=== PATIENT | female | born 1980 | race African-American/Black ===

== ENCOUNTER 2018-01-03 17:13 | Emergency (ER) | payer MEDICAID, SELFPAY ==
[2018-01-03 18:20] LABS: Urine Blood 3+ (NEG); Urine Glucose NEGATIVE (NEG); Urine Protein 2+ (NEG); Urine pH 6.5 (5.0-7.0)
--- NOTE | 2018-01-03 19:32 | EDPHYS ---
Physician Documentation [facility] Name: Cecile Salvador Age: 37 yrs Sex: Female : 1980 Arrival Date: 01/03/2018 Time: 17:18 Bed 16 Private MD: None, None ED Physician Mariela Gill HPI: 01/03 17:45 This 37 yrs old Black Female presents to ER via Ambulatory with complaints of Check HCG cp Levels. 17:45 The patient presents with vaginal bleeding that is spotting, a desire for a cp test. 17:45 Onset: The symptoms/episode began/occurred 2 week(s) ago, intermittently. 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 - Social history:: Smoking status: Patient uses tobacco products, smokes one-half pack cigarettes per day. - Ebola Screening: : Patient denies travel to an Ebola-affected area in the 21 days before illness onset. ROS: 17:52 Constitutional: Negative for body aches, chills, fever, poor PO intake. cp 17:52 Eyes: Negative for injury, pain, redness, and discharge. cp 17:52 Abdomen/GI: Negative for abdominal pain, nausea, vomiting, and diarrhea. 17:52 : Positive for vaginal spotting, Negative for urinary symptoms. 17:52 Skin: Negative for cellulitis, rash. 17:52 All other systems are negative. Exam: 17:58 Constitutional: The patient appears in no acute distress, alert, awake, non-toxic, well cp developed, well nourished. 17:58 Head/Face: Normocephalic, atraumatic. cp 17:58 Eyes: Periorbital structures: appear normal, Conjunctiva: normal, no exudate, no cp injection, Sclera: no appreciated abnormality, Lids and lashes: appear normal, bilaterally. 17:58 ENT: External ear(s): are unremarkable, Nose: is normal, Mouth: Lips: moist, Oral mucosa: pink and intact, moist, Posterior pharynx: is normal, airway is patent. 17:58 Chest/axilla: Inspection: normal, Palpation: is normal, no crepitus, no tenderness. 17:58 Cardiovascular: Rate: normal, Rhythm: regular. 17:58 Respiratory: the patient does not display signs of respiratory distress, Respirations: normal, no use of accessory muscles, no retractions, no splinting, no tachypnea, labored breathing, is not present. 17:58 Abdomen/GI: Inspection: abdomen appears normal, Bowel sounds: active, all quadrants, cp Palpation: abdomen is soft and non-tender, in all quadrants, rebound tenderness, is not appreciated, voluntary guarding, is not appreciated, involuntary guarding, is not appreciated. 17:58 Skin: cellulitis, is not appreciated, no rash present. Vital Signs: 17:38 BP 146 / 103; Pulse 54; Resp 18; Temp 98.6; Pulse Ox 100% on R/A; Weight 104.33 kg (R); aj1 Height 5 ft. 6 in. (167.64 cm) (R); Pain 6/10; 19:15 BP 144 / 82; Pulse 74; Resp 16; Pulse Ox 100% on R/A; Pain 0/10; lp1 17:38 Body Mass Index 37.12 (104.33 kg, 167.64 cm) aj1 MDM: 17:42 Patient medically screened. cp 18:00 Differential diagnosis: ectopic , menometrorrhagia, menorrhea, molar cp preganancy, ruptured ectopic , urinary tract infection, vaginosis. 19:30 Data reviewed: vital signs, nurses notes, lab test result(s), and as a result, I will cp discharge patient. 19:30 Counseling: I had a detailed discussion with the patient and/or guardian regarding: the cp historical points, exam findings, and any diagnostic results supporting the discharge/admit diagnosis, lab results, to return to the emergency department if symptoms worsen or persist or if there are any questions or concerns that arise at home, Discussed results of labs indicating negative . Will discharge to home for continued monitoring. 01/03 18:08 Order name: Urine Dipstick--Ancillary (enter results); Complete Time: 19:00 01/03 19:00 Interpretation: Normal except: UBLD 3+; UPROT 2+. 01/03 18:08 Order name: Urine --Ancillary (enter results); Complete Time: 19:00 ss 01/03 17:42 Order name: Urine Dipstick-Ancillary (obtain specimen); Complete Time: 18:05 01/03 17:42 Order name: Urine Test (obtain specimen); Complete Time: 18:06 01/03 18:19 Order name: Test, Serum; Complete Time: 19:29 01/03 19:29 Interpretation: Reviewed. cp Administered Medications: No medications were administered Disposition: 01/03/18 19:32 Discharged to Home. Impression: Encounter for test, result negative. - Condition is Stable. - Medication Reconciliation Form, Thank You Letter, Antibiotic Education, Prescription Opioid Use form. - Follow up: Private Physician; When: As needed; Reason: Worsening of condition. - Problem is new. - Symptoms are unchanged. Addendum: 01/04/2018 20:25 Co-signature as Attending Physician, Mairela Gill MD. m a2 Signatures: Dispatcher [employer] EDMS Treva Lopez RN RN aj1 Sissy Wolfe RN RN lp1 Adan Gurrola PA PA cp Mariela Gill MD MD ma2 Corrections: (The following items were deleted from the chart) 01/03 19:37 19:32 01/03/2018 19:32 Discharged to Home. Impression: Encounter for test, lp1 result negative. Condition is Stable. Forms are Medication Reconciliation Form, Thank You Letter, Antibiotic Education, Prescription Opioid Use. Follow up: Private Physician; When: As needed; Reason: Worsening of condition. Problem is new. Symptoms are unchanged. cp
--- NOTE | 2018-01-03 19:32 | ER ---
Nurse's Notes [facility] Name: Cecile Salvador Age: 37 yrs Sex: Female : 1980 Arrival Date: 01/03/2018 Time: 17:18 Bed 16 Private MD: None, None Diagnosis: Encounter for test, result negative Presentation: 01/03 17:32 Presenting complaint: Patient states: Vaginal bleeding intermittently for the past 2 aj1 weeks. States that she will bleed for 2 to 3 days and then stop, reports dark red blood with clots. She is concerned that she is having a miscarriage, she took 2 tests at home and they were both negative, but states she needs a blood test because her tests always buffing turner and counter negative. Transition of care: patient was not received from another setting of care. Onset of symptoms was January 03, 2018. Risk Assessment: Do you want to hurt yourself or someone else? Patient reports no desire to harm self or others. Initial Sepsis Screen: Does the patient meet any 2 criteria? No. Patient's initial sepsis screen is negative. Does the patient have a suspected source of infection? No. Patient's initial sepsis screen is negative. Care prior to arrival: None. 17:32 Method Of Arrival: Ambulatory aj1 17:32 Acuity: HAILEY 3 aj1 Triage Assessment: 17:38 General: Appears in no apparent distress. comfortable, Behavior is calm, cooperative, aj1 appropriate for age. Pain: Complains of pain in suprapubic area Pain does not radiate. Pain currently is 6 out of 10 on a pain scale. Quality of pain is described as heavy. Neuro: Level of Consciousness is awake, alert, obeys commands. Cardiovascular: Patient's skin is warm and dry. Respiratory: Airway is patent Respiratory effort is even, unlabored, Respiratory pattern is regular, symmetrical. : Reports vaginal bleeding that is with clots, spotty. 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 - Social history:: Smoking status: Patient uses tobacco products, smokes one-half pack cigarettes per day. - Ebola Screening: : Patient denies travel to an Ebola-affected area in the 21 days before illness onset. Screenin:42 Abuse screen: Denies threats or abuse. Nutritional screening: No deficits noted. rb1 Tuberculosis screening: No symptoms or risk factors identified. Fall Risk None identified. Assessment: 17:42 General: Appears in no apparent distress. comfortable, obese, Behavior is calm, rb1 cooperative. Pain: Denies pain. Neuro: Level of Consciousness is awake, alert, obeys commands, Oriented to person, place, time, situation. Cardiovascular: Capillary refill < 3 seconds is brisk in bilateral fingers. Respiratory: Airway is patent Respiratory effort is even, unlabored, Respiratory pattern is regular, symmetrical. GI: No signs and/or symptoms were reported involving the gastrointestinal system. : Reports urinary frequency. Derm: Skin is dry, Skin is normal, Skin temperature is warm. 19:15 Reassessment: Patient appears in no apparent distress at this time. Patient is alert, lp1 oriented x 3, equal unlabored respirations, skin warm/dry/pink. Vital Signs: 17:38 BP 146 / 103; Pulse 54; Resp 18; Temp 98.6; Pulse Ox 100% on R/A; Weight 104.33 kg (R); aj1 Height 5 ft. 6 in. (167.64 cm) (R); Pain 6/10; 19:15 BP 144 / 82; Pulse 74; Resp 16; Pulse Ox 100% on R/A; Pain 0/10; lp1 17:38 Body Mass Index 37.12 (104.33 kg, 167.64 cm) aj1 ED Course: 17:18 Patient arrived in ED. sb2 17:19 None, None is Private Physician. sb2 17:36 Triage completed. aj1 17:38 Arm band placed on Patient placed in an exam room. aj1 17:42 Aadn Gurrola PA is PHCP. cp 17:42 Mariela Gill MD is Attending Physician. cp 17:42 Patient has correct armband on for positive identification. Bed in low position. Call rb1 light in reach. Side rails up X 1. Pulse ox on. NIBP on. 17:55 Constanza Andino, RN is Primary Nurse. rb1 19:04 Report given to DAPHNEY Sheehan. rb1 19:16 No provider procedures requiring assistance completed. lp1 19:21 Sissy Wolfe, RN is Primary Nurse. lp1 19:36 Patient did not have IV access during this emergency room visit. lp1 Administered Medications: No medications were administered Outcome: 19:32 Discharge ordered by MD. cp 19:36 Discharged to home ambulatory. lp1 19:36 Condition: good 19:36 Discharge instructions given to patient, Instructed on discharge instructions, follow up and referral plans. Demonstrated understanding of instructions, follow-up care. 19:37 Patient left the ED. lp1 Signatures: Treva Lopez, RN RN aj1 Sissy Wolfe, RN RN lp1 Adan Gurrola PA PA cp Barber, Rebecca, RN RN rb1 Janel Alvarado sb2
[2018-01-03 19:50] VITALS: TEMP 98.6; O2SAT 100
[2018-01-03 19:51] VITALS: BP 144/82
== END 2018-01-03 19:37 | disposition home or self-care (01) ==
LOC: ER 17:13
DX: Z32.02 Encounter for pregnancy test, result negative (principal); I10 Essential (primary) hypertension
CPT/HCPCS: 36415; 81003; 81025; 84703; 99283

== ENCOUNTER 2018-06-26 08:43 | Emergency (ER) | payer SELFPAY ==
--- NOTE | 2018-06-26 09:16 | EDPHYS ---
Physician Documentation [facility] Name: Cecile Salvador Age: 37 yrs Sex: Female : 1980 Arrival Date: 06/26/2018 Time: 08:47 Bed 13 Private MD: None, None ED Physician Adan Juarez HPI: 06/26 09:14 This 37 yrs old Black Female presents to ER via Ambulatory with complaints of Cough, jr8 Congestion, Sore Throat. 09:14 The patient or guardian reports cough, that is intermittent, described as mild, with no jr8 sputum. Onset: The symptoms/episode began/occurred gradually, 2 week(s) ago. Severity of symptoms: At their worst the symptoms were mild, in the emergency department the symptoms are unchanged. Modifying factors: The symptoms are alleviated by nothing, the symptoms are aggravated by nothing. Associated signs and symptoms: Pertinent positives: rhinorrhea, sore throat. The patient has not experienced similar symptoms in the past. The patient has not recently seen a physician. 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 - Social history:: Smoking status: Patient uses tobacco products, smokes one-half pack cigarettes per day. - Ebola Screening: : No symptoms or risks identified at this time. ROS: 09:14 Eyes: Negative for injury, pain, redness, and discharge, Neck: Negative for injury, jr8 pain, and swelling, Cardiovascular: Negative for chest pain, palpitations, and edema, Abdomen/GI: Negative for abdominal pain, nausea, vomiting, diarrhea, and constipation, Back: Negative for injury and pain, MS/Extremity: Negative for injury and deformity, Skin: Negative for injury, rash, and discoloration, Neuro: Negative for headache, weakness, numbness, tingling, and seizure. 09:14 ENT: Positive for rhinorrhea, sinus congestion, sore throat. 09:14 Respiratory: Positive for cough, Negative for shortness of breath, sputum production, wheezing. Exam: 09:14 Eyes: Pupils equal round and reactive to light, extra-ocular motions intact. Lids and jr8 lashes normal. Conjunctiva and sclera are non-icteric and not injected. Cornea within normal limits. Periorbital areas with no swelling, redness, or edema. ENT: Nares patent. No nasal discharge, no septal abnormalities noted. Tympanic membranes are normal and external auditory canals are clear. Oropharynx with no redness, swelling, or masses, exudates, or evidence of obstruction, uvula midline. Mucous membranes moist. Neck: Trachea midline, no thyromegaly or masses palpated, and no cervical lymphadenopathy. Supple, full range of motion without nuchal rigidity, or vertebral point tenderness. No Meningismus. Cardiovascular: Regular rate and rhythm with a normal S1 and S2. No gallops, murmurs, or rubs. Normal PMI, no JVD. No pulse deficits. Respiratory: Lungs have equal breath sounds bilaterally, clear to auscultation and percussion. No rales, rhonchi or wheezes noted. No increased work of breathing, no retractions or nasal flaring. Abdomen/GI: Soft, non-tender, with normal bowel sounds. No distension or tympany. No guarding or rebound. No evidence of tenderness throughout. Back: No spinal tenderness. No costovertebral tenderness. Full range of motion. Skin: Warm, dry with normal turgor. Normal color with no rashes, no lesions, and no evidence of cellulitis. MS/ Extremity: Pulses equal, no cyanosis. Neurovascular intact. Full, normal range of motion. Neuro: Awake and alert, GCS 15, oriented to person, place, time, and situation. Cranial nerves II-XII grossly intact. Motor strength 5/5 in all extremities. Sensory grossly intact. Cerebellar exam normal. Normal gait. Vital Signs: 09:15 BP 159 / 115; Pulse 99; Resp 18 S; Temp 99.2(O); Pulse Ox 99% on R/A; Weight 129.27 kg 7 (R); Height 5 ft. 6 in. (167.64 cm) (R); Pain 5/10; 09:15 Body Mass Index 46.00 (129.27 kg, 167.64 cm) 7 MDM: 08:50 Patient medically screened. jr8 09:14 Data reviewed: vital signs, nurses notes, and as a result, I will discharge patient. jr8 Data interpreted: Pulse oximetry: on room air is 100 %. Interpretation: normal. Counseling: I had a detailed discussion with the patient and/or guardian regarding: the historical points, exam findings, and any diagnostic results supporting the discharge/admit diagnosis, the need for outpatient follow up, a family practitioner, to return to the emergency department if symptoms worsen or persist or if there are any questions or concerns that arise at home. Administered Medications: No medications were administered Disposition: 06/26/18 09:16 Discharged to Home. Impression: Acute sinusitis, Acute pharyngitis. - Condition is Stable. - Discharge Instructions: Pharyngitis, Sinusitis, Adult. - Prescriptions for Prednisone 20 mg Oral Tablet - take 1 tablet by ORAL route once daily for 5 days; 5 tablet. Tessalon Perles 100 mg Oral Capsule - take 1 capsule by ORAL route every 8 hours As needed; 15 capsule. Zithromax Z- Harley 250 mg Oral Tablet - take 1 tablet by ORAL route as directed for 5 days Day 1 - take two (2) tablets one time. Day 2, 3, 4 , 5 take one (1) tablet once daily.; 6 tablet. Hydrochlorothiazide 25 mg Oral Tablet - take 1 tablet by ORAL route once daily .; 30 tablet. - Medication Reconciliation Form, Thank You Letter, Antibiotic Education, Prescription Opioid Use form. - Follow up: Private Physician; When: 5 - 6 days; Reason: Recheck today's complaints, Continuance of care, Re-evaluation by your physician. - Problem is new. - Symptoms have improved. Addendum: 06/30/2018 08:03 Co-signature as Attending Physician, Adan Juarez MD I agree with the assessment and c rios plan of care. Signatures: Adan Juarez MD MD cha Roszak, Josh, PA PA jr8 Gage Orr RN RN jl7 Corrections: (The following items were deleted from the chart) 06/26 09:24 09:16 06/26/2018 09:16 Discharged to Home. Impression: Acute sinusitis; Acute jl7 pharyngitis. Condition is Stable. Forms are Medication Reconciliation Form, Thank You Letter, Antibiotic Education, Prescription Opioid Use. Follow up: Private Physician; When: 5 - 6 days; Reason: Recheck today's complaints, Continuance of care, Re-evaluation by your physician. Problem is new. Symptoms have improved. jr8
--- NOTE | 2018-06-26 09:16 | ER ---
Nurse's Notes [facility] Name: Cecile Salvador Age: 37 yrs Sex: Female : 1980 Arrival Date: 06/26/2018 Time: 08:47 Bed 13 Private MD: None, None Diagnosis: Acute sinusitis;Acute pharyngitis Presentation: 06/26 09:12 Presenting complaint: Patient states: cough, congestion, sore throat x 2 weeks, denies jl7 fever, N/V/D. Transition of care: patient was not received from another setting of care. Onset of symptoms was June 10, 2018. Risk Assessment: Do you want to hurt yourself or someone else? Patient reports no desire to harm self or others. Initial Sepsis Screen: Does the patient meet any 2 criteria? No. Patient's initial sepsis screen is negative. Does the patient have a suspected source of infection? No. Patient's initial sepsis screen is negative. Care prior to arrival: None. 09:12 Method Of Arrival: Ambulatory 7 09:12 Acuity: HAILEY 4 jl7 Triage Assessment: 09:15 General: Appears in no apparent distress. uncomfortable, Behavior is calm, cooperative, jl7 appropriate for age. Pain: Complains of pain in sore throat Pain currently is 5 out of 10 on a pain scale. EENT: Throat is clear is reddened. Neuro: Level of Consciousness is awake, alert, obeys commands, Oriented to person, place, time, situation. Cardiovascular: Patient's skin is warm and dry. Respiratory: Airway is patent Respiratory effort is even, unlabored, Breath sounds are clear bilaterally. GI: No signs and/or symptoms were reported involving the gastrointestinal system. : No signs and/or symptoms were reported regarding the genitourinary system. Derm: Skin is dry, Skin is normal, Skin temperature is warm. Musculoskeletal: No signs and/or symptoms reported regarding the musculoskeletal system. 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 - Social history:: Smoking status: Patient uses tobacco products, smokes one-half pack cigarettes per day. - Ebola Screening: : No symptoms or risks identified at this time. Screenin:17 Abuse screen: Denies threats or abuse. Denies injuries from another. Nutritional jl7 screening: No deficits noted. Tuberculosis screening: No symptoms or risk factors identified. Fall Risk None identified. Assessment: 09:17 General: See triage assessment. Cardiovascular: Heart tones present Patient's skin is jl7 warm and dry. Respiratory: Airway is patent Respiratory effort is even, unlabored, Respiratory pattern is regular, symmetrical, Breath sounds are clear bilaterally. Vital Signs: 09:15 BP 159 / 115; Pulse 99; Resp 18 S; Temp 99.2(O); Pulse Ox 99% on R/A; Weight 129.27 kg jl7 (R); Height 5 ft. 6 in. (167.64 cm) (R); Pain 5/10; 09:15 Body Mass Index 46.00 (129.27 kg, 167.64 cm) jl7 ED Course: 08:47 Patient arrived in ED. mr 08:47 None, None is Private Physician. mr 08:50 Nahun Ortega PA is PHCP. jr8 08:50 Adan Juarez MD is Attending Physician. jr8 09:11 Gage Orr RN is Primary Nurse. jl7 09:14 Triage completed. jl7 09:15 Arm band placed on right wrist. jl7 09:17 Patient has correct armband on for positive identification. Bed in low position. Call jl7 light in reach. Side rails up X 1. Pulse ox on. NIBP on. 09:24 No provider procedures requiring assistance completed. Patient did not have IV access jl7 during this emergency room visit. Administered Medications: No medications were administered Outcome: 09:16 Discharge ordered by . jr8 09:24 Discharged to home ambulatory, with family. jl7 09:24 Condition: stable 09:24 Discharge instructions given to patient, family, Instructed on discharge instructions, follow up and referral plans. medication usage, Demonstrated understanding of instructions, follow-up care, medications, Prescriptions given X 4. 09:24 Patient left the ED. jl7 Signatures: Chauncey Alexia mr Nahun Ortega PA PA jrGage Yates, RN RN jl7
[2018-06-26 09:29] VITALS: BP 159/115; TEMP 99.2; O2SAT 99
== END 2018-06-26 09:24 | disposition home or self-care (01) ==
LOC: ER 08:43
DX: J01.90 Acute sinusitis, unspecified (principal); J02.9 Acute pharyngitis, unspecified; I10 Essential (primary) hypertension; F17.210 Nicotine dependence, cigarettes, uncomplicated
CPT/HCPCS: 99283